=== PATIENT | male | born 1970 | race Caucasian/White ===

== ENCOUNTER 2016-11-08 14:00 | Emergency (ER) | payer BC ==
[~2016-11-08] VITALS: Ht 182.9 cm; Wt 114.3 kg
[~2016-11-08 14:00] MED LIST: PRED50TA PO
[2016-11-08 14:07] VITALS: Ht 182.9 cm; Wt 114.3 kg
--- NOTE | 2016-11-08 15:04 | DIAGNOSTIC IMAGING REPORT ---
RIGHT SHOULDER MIN 2 VIEWS ROUTINE CLINICAL HISTORY: Right shoulder pain following fall. COMPARISON: None FINDINGS: Alignment of the right glenohumeral joint is anatomic. There is a surgical anchor within the right humeral head. No acute fracture is identified. Irregularity of the distal right clavicle is likely degenerative or postsurgical. There is mild glenohumeral joint arthrosis and moderate acromioclavicular joint arthrosis. There may be slight elevation of the distal right clavicle. IMPRESSION: 1. No acute fracture. Anatomic alignment right glenohumeral joint. 2. Slight elevation of the distal right clavicle with respect to the acromion. This may be postsurgical although a mild age indeterminate AC joint separation could have this appearance. Electronically signed by: Tenzin Lehman M.D. 11/08/2016 3:03 PM Dictated Date/Time: 11/08/2016 3:00 PM
[2016-11-08] MEDS ORDERED: GLUCTAB7 PO (15:07)
[2016-11-08] MEDS ORDERED: MULT-506 PO (15:07)
[2016-11-08] MEDS ORDERED: ACET-1138 PO (15:07)
[2016-11-08 16:02] VITALS: BP 120/79; PULSE 78; TEMP 36.7; O2SAT 99
--- NOTE | 2016-11-08 20:40 | EMERGENCY ROOM VISIT NOTE ---
ED Visit Note First contact with patient: 14:17 Chief Complaint: Right shoulder pain. History of Present Illness: Mr. Green is a 46-year-old white male who ambulates into the ED accompanied by female friend complaining of right shoulder pain over the acromioclavicular joint. Historically patient reports he's had previous rotator cuff surgery approximately 2 years ago without complication. Patient reports that he was trail running when he fell onto his right shoulder. This occurred approximately 5 hours before he arrived in the emergency department. Since the fall he's been having constant pain over the right acromioclavicular joint. He describes it as a achy sensation at rest that becomes sharp predominantly with a combination of shoulder extension and internal rotation. He has not taken any medications for pain prior to arrival at the hospital. He rates his discomfort 2/10. He denies any associated symptoms including signs of head injury, striking his head at the time of the fall, neck pain, chest pain, shortness of breath, arm weakness/numbness/ tingling. Review of Systems: As noted above in history of present illness. Past Medical History: As previously noted, status post and multiple orthopedic injuries. Current Medications: Extra strength Tylenol, glucosamine, multivitamins and Zyrtec. Allergies to Medications: NSAIDs. Social History: Patient is currently employed; he feels safe in his home environment; he denies tobacco use and admits to social alcohol use. Physical Examination: Vital Signs: Date Time Temp Pulse Resp B/P (MAP) Pulse Ox O2 Delivery O2 Flow Rate FiO2 11/08/16 16:02 36.7 78 18 120/79 99 11/08/16 16:00 78 18 120/79 99 Room Air 11/08/16 14:07 36.7 81 18 123/83 97 Room Air GENERAL: 46-year-old male in mild distress due to pain, nontoxic-appearing, afebrile and hemodynamically stable. NEUROLOGICAL: Awake, alert and oriented to person, place and time. Answering questions appropriately and following commands. Normal gait. Good hand eye coordination. No focal motor or sensory deficits. SKIN: Warm, dry and pink. No soft tissue trauma noted. HEENT: Atraumatic and normocephalic. RIGHT UPPER EXTREMITY: No gross bony deformity. Mild to moderate tenderness over the acromioclavicular joint with elevation of the clavicle; patient reports this occurred today and is not from his previous surgeries. No tenderness over the humerus, clavicle, elbow, forearm or wrist. Decreased range of motion in abduction, extension and internal rotation. With the elbow stabilized he has full range of motion in flexion and extension of the elbow, pronation and supination of forearm and flexion, extension and radial and ulnar deviation of the wrist. All distal neurovascular statuses are intact and equal bilaterally. ED Course: Patient is assessed as noted above Patient's medication list was reviewed. Patient was offered pain medication and refused. Right Shoulder X-Rays: Were read by myself and the radiologist shows postsurgical changes but no fractures. There is elevation of the clavicle at the acromioclavicular joint consistent with a separation. Patient was offered a shoulder mobilizer reports he's had one from his previous surgeries. Patient was educated about today's findings and instructed on his treatment plan ; he verbalized understanding and agreement with this plan and Clinical Impression: Right acromioclavicular joint separation. Status post fall. Disposition: Patient discharged home in stable condition accompanied by his ; prior to departure he was reassessed and subjectively reported he was feeling the same. Plan: Comfort measures were discussed with the patient including rest, mobilizer use, ice and acetaminophen. Patient was encouraged to follow-up with his orthopedic surgeon for recheck. Patient is encouraged return the ED for worsening/uncontrolled pain, uncontrolled swelling, arm/hand weakness/numbness/tingling or any new/ concerning symptoms.
[2016-11-08] MEDS ORDERED: CETI10TA84 PO (20:49)
== END 2016-11-08 16:03 | disposition home or self-care (01) ==
LOC: C.EDB 14:03 → C.EDD 16:03
DX: S43.101A Unspecified dislocation of right acromioclavicular joint, initial encounter (principal); W19.XXXA Unspecified fall, initial encounter; Y93.02 Activity, running

== ENCOUNTER 2017-03-22 23:06 | Emergency (ER) | payer BC ==
[~2017-03-22] VITALS: Ht 182.9 cm; Wt 118.2 kg
[~2017-03-22 23:06] MED LIST changes: +ACET-1138 PO; +CETI10TA84 PO; +GLUCTAB7 PO; +MULT-506 PO; -PRED50TA PO
[2017-03-22 23:09] VITALS: TEMP 36.5; Ht 182.9 cm; Wt 118.2 kg
[2017-03-22] MEDS ORDERED: HYDROmorphone INJ 2 MG/ML SYR/VIAL IV STA (23:22)
--- NOTE | 2017-03-22 23:26 | EMERGENCY ROOM VISIT NOTE ---
History Report prepared by Salvador: Dunia Mason Under the Supervision of: Dr. Cece Leone D.O. First contact with patient: 23:12 Chief Complaint: LEG PAIN,LEG INJURY Stated Complaint: SEVERE PAIN R LEG History of Present Illness The patient is a 46 year old male who presents to the Emergency Room with complaints of severe right leg pain beginning a couple hours ago. The patient notes he went for a 4 mile run yesterday and felt fine after. He states he woke up this morning with his right knee swelling and decreased range of motion. He said his severe pain then began suddenly a couple hours ago. He notes some calf tightness and soreness. His pain radiates to his hamstring. He denies any groin pain, abdominal pain, sore throat, cough, fever, or weight loss. The patient has a history of PCL and MCL repair by Dr. Capellan. The patient is allergic to NSAIDs and states his lips get swollen when he takes it. The patient denies any history of blood clots. He has no other medical history besides hospitalization for orthopedic surgeries. Source of History: patient Onset: a couple hours ago Position: leg (right) Symptom Intensity: severe Quality: other (radiates to hamstring) Associated Symptoms: No fevers, No sorethroat, No cough, No abdominal pain Note: Pt notes right knee swelling and decreased range of motion. Review of Systems See HPI for pertinent positives & negatives. A total of 10 systems reviewed and were otherwise negative. Past Medical & Surgical Surgical Problems: (1) S/P MCL repair Family History No pertinent family history. Social History Smoking Status: Never Smoker Alcohol Use: occasionally Marital Status: Housing Status: lives with family Occupation Status: employed Current/Historical Medications Scheduled Cetirizine (Zyrtec), 10 MG PO DAILY Pqasmtgybdf-Qsrefqliedv-Fzq C- (Glucosamine Chondroitin), 1 TAB PO DAILY Multivitamin (Multivitamin), 1 TAB PO DAILY Scheduled PRN Oxycodone/Acetaminophen 5MG/325MG (Percocet 5MG/325MG), 2 TABLETS PO Q4H PRN for Pain Allergies Coded Allergies: NSAIDs (Verified Allergy, Intermediate, Facial swelling, 03/22/17) Ibuprofen (Verified Allergy, Unknown, facial swelling, 03/22/17) Physical Exam Vital Signs Date Time Temp Pulse Resp B/P (MAP) Pulse Ox O2 Delivery O2 Flow Rate FiO2 11/13/17 04:02 54 20 137/86 94 03/23/17 03:25 55 20 143/88 94 Room Air 03/23/17 02:05 56 20 150/93 93 Room Air 03/23/17 00:13 58 20 128/80 94 Room Air 03/22/17 23:09 36.5 57 18 173/102 98 Room Air Physical Exam HEENT: Head - normocephalic and atraumatic Pupils are equal, round, and reactive to light. Extraocular eye muscles are intact, and sclera are anicteric. Nose - moist nasal mucosa without discharge. Mouth - moist buccal mucosa. Oropharynx is nonerythematous and there is no tonsillar exudate or edema noted. Neck: Supple; no JVD, nuchal rigidity, cervical lymphadenopathy, or auscultated bruits. Heart: Regular rate and rhythm. There is a normal S1 and S2 with no murmurs, clicks, or gallops appreciated. Lungs: Clear to auscultation bilaterally with no wheezes, rales, or rhonchi. Abdomen: Soft, completely nontender, nondistended, with good bowel sounds. There are no palpable pulsatile masses or hepatosplenomegaly. There is no guarding, rigidity, or rebound noted. Extremities: Edema from right mid-thigh to mid-calf, pain with palpation of right popliteal fossa and posterior thigh, limited range of motion of right knee with flexion. Skin: warm and dry with good turgor and no rashes. Medical Decision & Procedures ER Provider Diagnostic Interpretation: Radiology results as stated below per my review and the radiologist's interpretation: US VENOUS RIGHT LOWER EXTREMITY: No evidence of deep venous thrombosis. Radiologist Arminda Rich Right knee X-ray: small joint effusion, mild degenerative changes, no obvious fracture. Laboratory Results 03/22/17 23:25 Red Blood Count 4.92, Mean Corpuscular Volume 86.0, Mean Corpuscular Hemoglobin 31.9, Mean Corpuscular Hemoglobin Concent 37.1, Mean Platelet Volume 9.7, Neutrophils (%) (Auto) 47.0, Lymphocytes (%) (Auto) 44.3, Monocytes (%) (Auto) 6.2, Eosinophils (%) (Auto) 2.4, Basophils (%) (Auto) 0.0, Neutrophils # (Auto) 3.31, Lymphocytes # (Auto) 3.12, Monocytes # (Auto) 0.44, Eosinophils # (Auto) 0.17, Basophils # (Auto) 0.00 Test 03/22/17 23:25 White Blood Count 7.05 K/uL (4.8-10.8) Red Blood Count 4.92 M/uL (4.7-6.1) Hemoglobin 15.7 g/dL (14.0-18.0) Hematocrit 42.3 % (42-52) Mean Corpuscular Volume 86.0 fL (80-100) Mean Corpuscular Hemoglobin 31.9 pg (25-34) Mean Corpuscular Hemoglobin Concent 37.1 g/dl (32-36) Platelet Count 225 K/uL (130-400) Mean Platelet Volume 9.7 fL (7.4-10.4) Neutrophils (%) (Auto) 47.0 % Lymphocytes (%) (Auto) 44.3 % Monocytes (%) (Auto) 6.2 % Eosinophils (%) (Auto) 2.4 % Basophils (%) (Auto) 0.0 % Neutrophils # (Auto) 3.31 K/uL (1.4-6.5) Lymphocytes # (Auto) 3.12 K/uL (1.2-3.4) Monocytes # (Auto) 0.44 K/uL (0.11-0.59) Eosinophils # (Auto) 0.17 K/uL (0-0.5) Basophils # (Auto) 0.00 K/uL (0-0.2) RDW Standard Deviation 40.6 fL (36.4-46.3) RDW Coefficient of Variation 12.9 % (11.5-14.5) Immature Granulocyte % (Auto) 0.1 % Immature Granulocyte # (Auto) 0.01 K/uL (0.00-0.02) Erythrocyte Sedimentation Rate 6 mm/hr (0-14) C-Reactive Protein 0.31 mg/dl (0-0.29) Lyme Disease IgG Antibody NEG (NEG) Lyme Disease IgM Antibody NEG (NEG) Laboratory results per my review. Medications Administered Medications (Trade) Dose Ordered Sig/Tevin Route Start Time Stop Time Status Last Admin Dose Admin Hydromorphone HCl (Dilaudid Inj) 2 mg NOW STAT IV 03/22/17 23:22 03/22/17 23:24 DC 03/22/17 23:31 2 MG Hydromorphone HCl (Dilaudid Inj) 2 mg NOW STAT IV 03/23/17 00:03 03/23/17 00:04 DC 03/23/17 00:11 2 MG Oxycodone/ Acetaminophen (Percocet 5-325mg Tab) 2 tab NOW ONCE PO 03/23/17 03:15 03/23/17 03:16 DC 03/23/17 03:25 2 TAB Procedure Dilaudid IV, Oxycodone/ Acetaminophen PO. ED Course 2315: Past medical records reviewed. The patient was evaluated in room A11B. A complete history and physical exam was performed. 2322: Dilaudid Inj 2 mg IV. 0003: Dilaudid Inj 2 mg IV. 0106: The patient was sleeping. When woken up, he states his pain is much improved. The patient went for ultrasound of the right lower extremity which was unremarkable. 0253: I updated the patient on his test results. The patient states his pain is coming back. On re-exam, the swelling in his right leg has decreased. He will go for X-ray. 0315: Oxycodone/ Acetaminophen 2 tab PO. 0340: The patient is comfortable and had relief with Percocet. I updated him on his X-ray results and will send him home with Percocet. I reviewed the PDMP and the no issues were identified. I reviewed the hazards of opioid abuse and addiction with the patient. He will follow up wit Dr. Varma. 0358: Upon reevaluation, the patient is resting comfortably. I discussed findings and results with him. He verbalized agreement of the treatment plan. The patient was discharged home. Medical Decision The patient is a 46 year old male who presents to the Emergency Room with complaints of severe right leg pain beginning a couple hours ago. Differential diagnosis includes: DVT, arteriole clot, bakers cyst, septic joint, sciatica. Lab results show: no leukocytosis, ESR of 6, c-reactive protein of 0.3. Lyme testing was negative. The patient doesn't remember any specific injury to the right leg or knee. He had significant discomfort of the knee that seemed to extend into the calf and hamstring area. Ultrasound of the right lower extremity showed no evidence of DVT or browne cyst. The patient did get some relief of his pain with analgesia. I've asked him to rest and avoid any strenuous activity until follow-up in orthopedics. He plans to call Dr. Varma this morning for recheck. He was given a prescription for Percocet to use over the next couple of days. [place] Drug Monitoring Program Search Results: patient reviewed within database, no issues identified Medication Reconcilliation Current Medication List: was personally reviewed by me Blood Pressure Screening Patient's blood pressure: Elevated blood pressure Blood pressure disposition: Elevated BP felt to be situational Impression Primary Impression: Leg pain, right Scribe Attestation The scribe's documentation has been prepared under my direction and personally reviewed by me in its entirety. I confirm that the note above accurately reflects all work, treatment, procedures, and medical decision making performed by me. Departure Information Dispostion Home / Self-Care Prescriptions Oxycodone/Acetaminophen 5MG/325MG (PERCOCET 5MG/325MG) Tab 2 TABLETS PO Q4H Y for Pain, #20 TAB Prov: Cece Leone D.O. 03/23/17 Referrals Eugene Do M.D. ([facility]) (PCP) Forms HOME CARE DOCUMENTATION FORM, IMPORTANT VISIT INFORMATION Patient Instructions My [facility] [place] [employer] Additional Instructions Rest with the right leg elevated. Percocet - 2 tabs. every 4 hours for pain Follow up today with Dr. Varma. Return to the ER if you develop any wosening pain or fever
[2017-03-22 23:45] LABS: COMPLETE YES; EOS % 2.4 %; HEMATOCRIT 42.3 % (42-52); IG% 0.1 %; LYMPH % 44.3 %; LYMPH ABS # 3.12 K/uL (1.2-3.4); MEAN CORPUSCULAR HEMOGLOBIN 31.9 pg (25-34); MEAN CORPUSCULAR HGB CONC 37.1 g/dl (32-36); MEAN PLATELET VOLUME 9.7 fL (7.4-10.4); MONO % 6.2 %; PLATELET COUNT 225 K/uL (130-400); RED BLOOD COUNT 4.92 M/uL (4.7-6.1); WHITE BLOOD COUNT 7.05 K/uL (4.8-10.8)
[2017-03-23] MEDS ORDERED: HYDROmorphone INJ 2 MG/ML SYR/VIAL IV STA (00:03)
[2017-03-23] MEDS ORDERED: OXYCODONE/ACETAMINOPHEN 5-325 TAB PO ONE (03:15)
[2017-03-23] MEDS ORDERED: OXYC-57 PO (03:50)
[2017-03-23 04:02] VITALS: BP 137/86; PULSE 54; O2SAT 94
[2017-03-23 04:29] LABS: LYME DISEASE AB IGG NEG (NEG); LYME DISEASE AB IGM NEG (NEG)
--- NOTE | 2017-03-23 07:13 | DIAGNOSTIC IMAGING REPORT ---
RIGHT KNEE 2 VIEWS CLINICAL HISTORY: Right knee pain COMPARISON: None. DISCUSSION: There are osteoarthritic changes present. There are are dorsal patellar spurs. There are no acute fractures. No destructive lesions are visualized. IMPRESSION: Osteoarthritic change. No acute fractures. Electronically signed by: Anam Medel M.D. 03/23/2017 7:12 AM Dictated Date/Time: 03/23/2017 7:11 AM
--- NOTE | 2017-03-23 07:22 | DIAGNOSTIC IMAGING REPORT ---
R VENOUS DOPP LOWER EXT UNILAT CLINICAL HISTORY: 46 years-old Male presenting with severe right leg pain, clinical concern for DVT eval for DVT. TECHNIQUE: Real-time grayscale and color and spectral Doppler ultrasound imaging of the veins of the right lower extremity was performed. Compression and augmentation were also utilized. COMPARISON: None. FINDINGS: Right: Common femoral vein: Patent. Femoral vein: Patent. Greater saphenous vein: Patent. Popliteal vein: Patent. Calf veins: Patent. Other: None. IMPRESSION: No evidence of deep venous thrombosis. Electronically signed by: Fabian Clements M.D. 03/23/2017 7:21 AM Dictated Date/Time: 03/23/2017 7:20 AM
== END 2017-03-23 04:03 | disposition home or self-care (01) ==
LOC: C.EDB 23:07 → C.EDA 03-23 04:03
DX: M79.604 Pain in right leg (principal); Z79.899 Other long term (current) drug therapy

== ENCOUNTER 2024-09-06 05:17 | Observation (INO) ==
--- NOTE | 2024-06-30 11:02 | PAT Medication Instructions ---
Medication Instructions Date of Service June 30, 2024 Home Medications cetirizine 10 mg tablet (Zyrtec) 10 mg PO QAM multivitamin 1 tab PO QAM DO NOT take the morning of surgery cetirizine 10 mg tablet (Zyrtec) 10 mg PO QAM multivitamin 1 tab PO QAM MORNING OF SURGERY: NOTHING TO EAT OR DRINK AFTER MIDNIGHT Other Notes If you have any questions please call us at [phone] or [phone] or [phone] or [phone]
--- NOTE | 2024-07-04 08:22 | Anesthesiology Consultation ---
Date of Service July 04, 2024 Assessment & Plan (1) Encounter for pre-operative examination: - Infectious disease screening: Per assessment on 07/04/24- No known recent infectious disease contacts or current infectious disease symptoms. - Outpatient joint assessment: Pt currently scheduled for inpatient pathway. If surgeon requests review for outpatient joint pathway, patient is an acceptable candidate for outpatient joint program from anesthesia standpoint pending surgeon's office assessment that patient is motivated, has good support and completes Same Day Joint Program preop requirements. - Cardiology visit (06/20/24): "Stable with no angina or nitroglycerin use.. Functional capacity >4 METS.. EKG in office with no acute ischemic changes.. In terms of preop risk assessment, per [facility] Criteria, patient would be placed at a low risk (less than 0.9%)for any adverse perioperative cardiovascular events associated with right knee replacement surgery. Patient is on a good medication regimen and no other cardiac testing or interventions would further lower that risk.." > Cardio planning for patient to start statin for cholesterol management- patient not starting until after upcoming surgery. - PCP visit (07/01/24): "Leigh Daigle, presents for a preoperative evaluation for a right knee replacement surgery scheduled for August [address] [facility]. The patient will general anesthesia will be used and has a pre-appointment with the anesthesiologist scheduled for the following Thursday. He has had anesthesia bef ore with no known complications such as high fevers, prolonged nausea, vomiting, or difficulty waking up. The patient is able to walk one city block and one flight of stairs without experiencing shortness of breath. The surgeon performing the operation is Dr. Fabian Blanchard from [facility]... No contraindication for surgery.. No precautions required" Chart Review Chart Review: Acceptable Risk for Surgery and Patient seen in Pre Admission Testing Teaching & Discussion Pre-Anesthesia Teaching/Discussion Notes: Instructed NPO after midnight before surgery,except medications with 15 cc of water. Medication instructions provided according to the PAT guidelines. History Surgery Operation Date: 08/02/24 07:00 Proposed Procedures p Right Total Knee Arthroplasty - Fabian Blanchard MD Height/Weight Height: 6 ft 1 in Weight: 125.8 kg Allergies Allergy/AdvReac Type Severity Reaction Status Date / Time ibuprofen Allergy Intermediate facial Verified 06/30/24 09:44 swelling NSAIDS (Non-Steroidal Allergy Intermediate Facial Verified 06/30/24 09:44 Anti-Inflamma swelling Medications Home Medications Medication Instructions Recorded Confirmed Last Taken cetirizine 10 mg tablet (Zyrtec) 10 mg PO QAM ##0 10/03/08 06/30/24 12/08/22 multivitamin 1 tab PO QAM 06/30/24 06/30/24 Unknown Past Medical History Medical History Ascending aorta enlargement Echo 04/2024: Borderline enlarged ascending aorta, 3.9cm Mild aortic valve sclerosis Echo 04/2024: Mild AV sclerosis Follows with Dr. Miller/Lucero cardio Osteoarthritis Exercise / Class Metabolic Activity II 4-5 Yardwork/Stairs/Walk up hill (one FS: no CP, no SOB) Past Family History Family History Other No family history of adverse response to anesthesia Past Surgical History Surgical History History of arthroscopy of right knee multiple History of colonoscopy History of elbow surgery right elbow "bone chips" History of left hip replacement History of repair of left rotator cuff History of repair of right rotator cuff History of wisdom tooth extraction Past Anesthesia History No Hx of Anesthesia Complications and No Family Hx of Anesthesia Complications History of PONV No Hx of PONV and No Hx of Motion Sickness Social History Smoking Status: Never smoker Do You Dip or Chew Tobacco: No Hx Alcohol Use: Yes ("1 or 2 drinks a week") alcohol intake frequency: a few times a month Hx Substance Use: No substance use type: does not use Review of Systems Patient denies chest pain, shortness of breath, dyspnea on exertion, fever, chills, cough, wheezing, palpitations. Physical Exam Vital Signs BP 129/79 P 63 TEMP 97.9 SP02 96%RA RESP 16 Physical Full cervical extension range of motion. Full TMJ range of motion. TMD 3 finger breaths Mallampati Score III Dentition: intact, + crowns Lungs: clear throughout to auscultation Cardiac: regular rate and rhythm, no murmurs noted Spine: normal Carotid arteries: negative bruit Extremities: no LE edema Lab Results Anesthesia Preop Results Results Anesthesia Widget: WBC 7.95 K/ul (4.8-10.8) 07/04/24 Hgb 16.0 g/dl (14.0-18.0) 07/04/24 Hct 44.9 % (42.0-52.0) 07/04/24 Plt 259 K/uL (130-400) 07/04/24 PT 10.6 Seconds (9.0-12.0) 07/04/24 PTT 27 Seconds (21-31) 07/04/24 INR 1.0 (0.9-1.1) 07/04/24 Blood Type O Positive 07/04/24 Antibody Screen NEGATIVE 07/04/24 Testing Laboratory Results 06/27/24 SODIUM 143 POTASSIUM 4.1 CHLORIDE 106 CO2 28 BUN 20 CREATININE 1.2 GLUCOSE 104 Electrocardiogram Date: 06/20/24 Findings: + NSR @ (66) Chest X-Ray Date: 07/04/24 FINDINGS: Heart size and pulmonary vasculature are normal. No effusion or consolidation. IMPRESSION: No acute findings. Echocardiogram Date: 04/11/24 LVEF 55-59%. Mildly increased cLVH. Grade I DD. Mild AV sclerosis. Borderline ascending aorta, 3.9cm. No significant change compared to 03/02/2023 study per report.
[~2024-09-06 05:17] MED LIST changes: -ACET-1138 PO; +ALLERGY Noted to ORDERED Medication SCH; -CETI10TA84 PO; -GLUCTAB7 PO; +LR 500ML BOLUS, THEN 15ML/HR IV SCH; -MULT-506 PO
[2024-09-06] MEDS: oxyCODONE HCL 10 MG TABCR (OxyCONTIN) PO SCH (05:50)
[2024-09-06] MEDS: LR 60ML/HR IV SCH (05:50)
[2024-09-06] MEDS: GABAPENTIN 900 MG DOSE PO SCH (05:51)
[2024-09-06] MEDS: FAMOTIDINE 20 MG TAB PO SCH (05:51)
[2024-09-06] MEDS: METOCLOPRAMIDE HCL 10 MG TABLET PO SCH (05:51)
[2024-09-06] MEDS: traMADol HCL 50 MG TABLET PO SCH (05:51)
[2024-09-06] MEDS: ACETAMINOPHEN 500 MG TAB PO SCH ×2 (05:51→15:07)
[2024-09-06] MEDS: LR 500ML BOLUS, THEN 15ML/HR IV SCH (06:03)
[2024-09-06] MEDS: dexAMETHasone**PF** 10 MG/ML VIAL IV SCH (06:03)
[2024-09-06] MEDS ORDERED: KETOROLAC 30 MG/ML VIAL ONE (06:22)
[2024-09-06] MEDS ORDERED: PROPOFOL IV EMULSION 10 MG/ML 100 ML VIAL IV ONE (06:22)
[2024-09-06] MEDS ORDERED: GLYCOPYRROLATE 0.2 MG/ML VIAL ONE (06:22)
[2024-09-06] MEDS ORDERED: LIDOCAINE 2% 2 ML VIAL/AMP(20MG/ML) INFIL ONE (06:22)
[2024-09-06] MEDS ORDERED: ONDANSETRON INJ 2 MG/ML 2 ML VIAL ONE (06:22)
[2024-09-06] MEDS ORDERED: MIDAZOLAM HCL 1 MG/ML 2ML VIAL ONE (06:28)
[2024-09-06] MEDS ORDERED: KETAMINE HCL 10MG/ML SYR ONE (06:28)
[2024-09-06] MEDS ORDERED: ROPIVACAINE 0.5% 5 MG/ML 30 ML VIAL ONE (06:32)
[2024-09-06] MEDS ORDERED: BUPIVACAINE 0.5 % 5 MG/1 ML PF 10ML VIAL ONE (06:32)
[2024-09-06] MEDS ORDERED: ATROPINE SULFATE 0.1 MG/ML 10ML SYR IV PRN (06:37)
[2024-09-06] MEDS ORDERED: fentaNYL citrate PF 100 MCG/2 ML VIAL IV PRN (06:37)
[2024-09-06] MEDS ORDERED: ePHEDrine sulfate 50 MG/ML AMP IV PRN (06:37)
[2024-09-06] MEDS ORDERED: ONDANSETRON INJ 2 MG/ML 2 ML VIAL IV PRN ×2 (06:37→13:10)
[2024-09-06] MEDS: TRANEXAMIC ACID 1,000 MG **IV Pre-op IV SCH (06:47)
--- NOTE | 2024-09-06 06:47 | History & Physical Bridge Note ---
Date of Service September 06, 2024 History & Physical Bridge Note I have examined the patient, reviewed the History & Physical and in the interval since the performance of the History & Physical I have noted the following changes of clinical significance: no changes noted
[2024-09-06] MEDS ORDERED: ePHEDrine sulfate 50 MG/5 ML SYR ONE (07:25)
[2024-09-06] MEDS ORDERED: PHENYLEPHRINE 100MCG/ML 5ML SYR ONE (07:25)
[2024-09-06] MEDS ORDERED: DexMEDEtomidine HCL IV 100 MCG/ML VIAL IV ONE (09:05)
[2024-09-06] MEDS ORDERED: PROPOFOL IV EMULSION 10 MG/ML 20 ML VIAL IV ONE ×2 (09:25→09:26)
[2024-09-06] MEDS: ROPIVACAINE 0.5% HCL/PF 246 MG, EPINEPHrine 30MG/30ML (OR USE) 0.5 MG in SODIUM CHLORID... INFIL SCH (09:30)
[2024-09-06] MEDS: VANCOMYCIN HCL 1000MG/20ML VIAL ONE (09:31)
--- NOTE | 2024-09-06 10:46 | Operative Report ---
Post Operative Report Pre & Post Diagnosis Operation Date: 09/06/24 07:00 Pre-Op Diagnosis: Right Knee Osteoarthritis Post-Op Diagnosis: Right Knee Osteoarthritis I identified the patient and participated in the time-out.: Yes Procedure Operation Date: 09/06/24 07:00 Actual Procedures p Right Total Knee Arthroplasty(Right) - Fabian Blanchard MD Surgeon Fabian Blanchard MD [employer] Sole Griffin PA-C; no fellow or resident available Estimated Blood Loss 20 Findings Consistent with Post-Op Diagnosis Specimens Bone and soft tissue Anesthesia Type MAC Spinal Regional Description of Procedure Patient was taken to the operating room and placed under IV sedation with spinal anesthesia. Time out was performed. He was given 3 g of IV Ancef for surgical prophylaxis. He was given 1 g of IV TXA preoperatively for bleeding prophylaxis. Patient was prepped and draped in routine sterile fashion. I was present during the entire case. Please see Dr. Blanchard's operative report for further details regarding today's procedure. Patient was awakened and transferred to the recovery room in stable condition. I attest to the content of the Intraoperative Record and any orders documented therein. Any exceptions are noted below.
--- NOTE | 2024-09-06 10:52 | Operative Report ---
Post Operative Report Pre & Post Diagnosis Operation Date: 09/06/24 07:00 Pre-Op Diagnosis: Right Knee Osteoarthritis Post-Op Diagnosis: Right Knee Osteoarthritis I identified the patient and participated in the time-out.: Yes Procedure Operation Date: 09/06/24 07:00 Actual Procedures p Right Total Knee Arthroplasty With unresurfaced patella(Right) - Fabian Blanchard MD Surgeon Fabian Blanchard MD Software Test Engineer Sole Griffin. No resident or fellow available Estimated Blood Loss 20 Findings Consistent with Post-Op Diagnosis Specimens Resected bone and soft tissue from the right knee Drains None Anesthesia Type MAC Spinal Regional Complications none Disposition Accompanied Patient To Recovery: No Disposition: Recovery Room Indications Patient is 54 years old. Right knee arthritis medial compartment. Refractory to nonsurgical treatment. Treatment options risks and benefits have been discussed and he has elected to proceed with knee replacement. Patient is large bodied with BMI of 35. Also very active. There was initial concern regarding implant sizing. To ensure appropriate sizing a CT scan of the knee has been done and Trumatch sizing through [employer] has been performed determining that he would be a size 9 on the tibia and a 10 on the femur which are standard sizes. 10 is the biggest femur offered. Description of Procedure Informed consent. Patient identified. He identified the procedure site as the right knee. I marked my initials. A preoperative surgicalTime out is performed. A preop dose of IV antibiotics was given. TXA given. Taken to the OR positioned supine on the operating room table. Anesthetic administered. Exam under anesthesia revealed range of motion 0/7/115. A fixed varus deformity. DVT prophylaxis intraoperatively with mechanical device. Postoperatively mobility mechanical devices and Eliquis starting the morning after surgery. Limb exsanguinated with the Esmarch. Tourniquet inflated to 250 mmHg and later it up to 300 mmHg. A midline longitudinal incision was made followed by medial parapatellar arthrotomy. There was extensive scarring in the knee secondary to previous surgery. The retropatellar fat pad was resected. The soft tissue on the anterior aspect of the distal femur was excised. An extensile medial release was performed. The patella was easily everted and the knee was flexed. The patella measured 27 mm in thickness. There was a small marginal osteophyte inferiorly. The patella had diffuse softening of the cartilage consistent with grade 1 chondrosis but there was no significant cartilage defect beyond that. Cartilage thickness was measured to be 4 to 5 mm over the median ridge. Peripatellar synovium was excised. I elected to preserve the patella. There was significant eburnation and loss of cartilage in the medial compartment 2 cm wide x 5 cm long on the femur and 1 x 3 on the tibia medial compartment. The medial meniscus was largely absent and the ACL was high-grade partial tear versus complete tear PCL intact. Lateral compartment looked normal. There were marginal osteophytes around the knee particularly medial but also lateral and these were excised. Osteophytes under the collateral ligaments were excised. The tibia was subluxated and a airplane pilot supervisor hole was drilled in between and in front of the tibial spines. Intramedullary alignment yuko was inserted followed by the 3 degree posterior slope cutting block. This was aligned to the tibial tubercle and pinned into place to take 10 mm off of the lateral side corresponding to 2 mm on the medial side. The leg was then placed into full extension and the extramedullary alignment yuko confirmed the alignment intersecting the second ray bisecting the ankle joint and having slight posterior slope. This tibial cut was then made and sized to a 9 or 10. Marginal osteophytes removed and releasing around the posterior medial corner performed. Scientific Investigator holes drilled into the distal femur followed by the insertion of the distal femoral cutting guide. 6 degrees right knee valgus 11 mm thick cut. The guide was pinned in the place and this cut was made. The extension gap was a symmetric 5 mm. The epicondylar axis was marked out. The sizing guide was applied and sized to a 10. 3 degrees external rotation right. This guide was pinned into place and then the size 10 cutting block anterior down was hung from these pins. The block was affixed with a threaded headed pins and the prior pins were removed. The collateral ligaments were protected. The flexion gap was rectangular. The anterior posterior and chamfer cuts were then made. The box cutting guide was applied and lateralized. This was pinned into place and the box cut was made. The trial component was applied and the lug holes were drilled. Prior to cutting the box the flexion and extension gaps were assessed. I was able to insert a 6 mm spacer both in flexion and extension. It was stable in both positions. The knee was fully extended and in neutral alignment. The trialing was performed with a 6 mm polyethylene insert which allowed full extension there is no laxity at 0 trace LCL laxity at 20 degrees knee flexion and no laxity at 90. The trial components were removed. The tibial canal was plugged. Ortho joint mix was injected into the back of the knee. Eburnated bone on the tibia and femur was drilled with a pin ready mix truck driver. Irrigation was performed and the bony surfaces were meticulously prepared and dried. 2 bags of Simplex P cement were mixed with no antibiotics. Smears were placed on the posterior condyles and within the lug holes. When in a doughy state the femur was cemented in place followed by the tibia. The knee was held in full extension until the cement hardened and the tourniquet was let down after 150 minutes of inflation. Some minor bleeding was controlled in the suprapatellar pouch with electrocautery. When the cement was hardening copious irrigation was performed and the remainder of the Ortho joint mix was injected.Trialing was again performed and the 6 mm thick insert gave the after mentioned laxity profi le and the final polyethylene was inserted after inspecting the back of the knee for cement and bleeding and addressing as encountered. No significant cement globules or bleeding was noted. Initially when trialing the patella tracked lateral. After the tourniquet was let down and this largely improved. I did do a partial lateral release preserving the superior lateral geniculate vessels. Patella tracked fine with no Lenora technique and with [address] also tracked fine. The knee was irrigated. The final polyethylene was inserted. The knee was fully straight had trace LCL laxity at 20 degrees knee flexion was otherwise stable at 0 and 90 degrees. The extensor mechanism was closed above the equator patella with interrupted #2 FiberWire and below with running and interrupted #1 Vicryl. [place] assisted flexion with extensor mechanism close was estimated to be 120 degrees the extension was 0.The skin was then closed in layers with 0 and 2-0 Vicryl followed by kristal on the skin. The leg was cleaned with wet and dry sponges and the soft sterile dressing was applied Xeroform 4 x 4's ABD soft wrap [place] wrap full-length [place] and a knee immobilizer. Patient was awakened from anesthesia difficulty and taken to the recovery room in stable condition. There were no complications and counts were correct. Blood loss is estimated to be 20 cc. There was no significant bleeding at the time of closure. I half gram of vancomycin was applied deep and half gram superficial to the extensor mechanism. The resected bone and soft tissue were sent for specimen. Components inserted where the J&J attune knee a size right posterior stabilized #10 femur with a #10 RP revision tray and a size 10 x 6 mm RP insert. You may rehabilitate according to standard total knee protocol. The tibia was prepared with the drill reamer and keel punch for the revision tibial implant system. This was done in order to improve the longevity of the implant by reducing the incidence of loosening associated with patient who is very active and has a higher BMI in a young age. I attest to the content of the Intraoperative Record and any orders documented therein. Any exceptions are noted below.
--- NOTE | 2024-09-06 11:08 | XRay Report ---
XR knee RT 1 or 2V routine HISTORY: 54 years-old Male Surgical Post Op right knee arthroplasty COMPARISON: July 11, 2024 TECHNIQUE: 2 views of the right knee FINDINGS: Total joint arthroplasty with patellar resurfacing. Anterior midline skin kristal with expected posto perative soft tissue swelling and deep tissue air. IMPRESSION: Satisfactory alignment of the right knee total joint arthroplasty. ACT 112: Negative or not required by law. The above report was generated using voice recognition software. It may contain grammatical, syntax o r spelling errors. Electronically signed by: Betito Walters M.D. 09/06/2024 11:06 AM
--- NOTE | 2024-09-06 11:37 | Anesthesiology Progress Note ---
Date of Service September 06, 2024 Anesthesia Post Procedure Vital Signs Vital Signs: Temp Pulse Resp BP Pulse Ox O2 Del Method O2 Flow Rate 09/06/24 11:30 932 H 18 105/71 95 Nasal Cannula 2 09/06/24 11:15 84 18 104/78 94 Nasal Cannula 2 09/06/24 11:05 97.9 F 86 21 117/79 96 Nasal Cannula 2 09/06/24 10:55 85 15 113/73 98 Nasal Cannula 2 09/06/24 10:45 81 18 107/75 98 Oxymask 6 09/06/24 10:38 97.3 F L 87 18 118/78 97 Oxymask 8 09/06/24 05:35 97.9 F 66 20 149/95 H 96 Room Air Pain Intensity Right Knee: Pain Intensity: 5 Transfer of Care Handoff Completed per policy Notes Mental Status: alert / awake / arousable and participated in evaluation Patient Amnestic to Procedure: Yes Nausea / Vomiting: adequately controlled Pain: adequately controlled Airway Patency, RR, SpO2: stable & adequate BP & HR: stable & adequate Hydration State: stable & adequate Neuraxial Anesthesia: was administered and sensory block is resolving Anesthetic Complications: no major complications apparent and Pt Satisfied with anesthetic care
[2024-09-06] MEDS ORDERED: HYDROmorphone INJ 1 MG/ML SYRINGE IV PRN (13:10)
[2024-09-06] MEDS ORDERED: bisacodyL 10 MG SUPP PR PRN (13:10)
[2024-09-06] MEDS ORDERED: METOCLOPRAMIDE HCL INJ 5 MG/ML 2 ML VIAL IV PRN (13:10)
[2024-09-06] MEDS ORDERED: NALOXONE HCL 0.4 MG/1 ML VIAL/CARP IV PRN (13:10)
[2024-09-06] MEDS ORDERED: hydrALAZINE HCL 20 MG/ML VIAL IV PRN (13:10)
[2024-09-06] MEDS ORDERED: NO NSAIDS SCH (13:10)
[2024-09-06] MEDS ORDERED: diphenhydrAMINE 50 MG/ML VIAL IV PRN (13:10)
[2024-09-06] MEDS ORDERED: HYDROmorphone INJ 0.5 MG/0.5 ML SYR IV PRN (13:10)
[2024-09-06] MEDS ORDERED: MAGNESIUM HYDROXIDE SUSP 30 ML UDC PO PRN (13:10)
[2024-09-06] MEDS: TAMSULOSIN HCL 0.4 MG CAP PO PRN (15:03)
--- NOTE | 2024-09-06 15:03 | Orthopedic Progress Note ---
Date of Service September 06, 2024 Assessment & Plan (1) Status post right knee replacement: Plan: POD 0- right TKA with Dr. Blanchard PT/OT to start tomorrow Ice to right knee as needed for pain/swelling Keep knee immobilizer on when in bed and when out of bed. OOB with assistance and a walker Pain medication as prescribed Some urinary retention - Flomax to be given/ordered. Nursing to bladder scan and cath PRN Eliquis to start tomorrow morning for DVT prophylaxis. Cefadroxil to start tomorrow after the completion of Ancef. May WBAT RLE Labs in the AM Case management for disposition. Plan for home with home health/PT tomorrow. Will re-eval in the AM and plan for discharge to home if doing well Findings discussed with Dr. Blanchard. Admission and Anticipated Discharge Date Admission Date: September 06, 2024 Subjective Patient doing well, sitting in chair. Had lunch and no post op nausea/vomiting. Feeling like he "can't pee". at bedside. Denies any chest pain or shortness of breath. Would like to get out of bed. Has been passing urine, just feels like he's not emptying completely. Physical Exam Musculoskeletal: Exam of his right leg: Knee immobilizer in place. Dressings on right leg clean, dry and intact. Full ankle ROM with normal strength with knee immobilizer in place. Able to lift leg off of bed. Dorsalis pedis and posterior tibial pulses 1+, distal sensation normal. Calf nontender with palpation. Tolerates gentle log rolling of right hip. Results & Data Vital Signs (Past 12 Hours) Vital Signs Temp Pulse Pulse Resp BP Pulse Ox O2 Del Method 09/06/24 14:08 36.4 C L 96 H 16 142/93 H 96 Room Air 09/06/24 13:00 37.3 C 89 14 117/63 95 Nasal Cannula 09/06/24 12:30 88 14 112/79 94 Nasal Cannula 09/06/24 12:00 90 16 132/88 94 Nasal Cannula 09/06/24 11:45 89 20 124/82 93 Nasal Cannula 09/06/24 11:30 932 H 18 105/71 95 Nasal Cannula 09/06/24 11:15 84 18 104/78 94 Nasal Cannula 09/06/24 11:05 36.6 C 86 21 117/79 96 Nasal Cannula 09/06/24 10:55 85 15 113/73 98 Nasal Cannula 09/06/24 10:45 81 18 107/75 98 Oxymask 09/06/24 10:38 36.3 C L 87 18 118/78 97 Oxymask 09/06/24 05:35 36.6 C 66 20 149/95 H 96 Room Air O2 Flow Rate 09/06/24 14:08 09/06/24 13:00 1 09/06/24 12:30 2 09/06/24 12:00 2 09/06/24 11:45 2 09/06/24 11:30 2 09/06/24 11:15 2 09/06/24 11:05 2 09/06/24 10:55 2 09/06/24 10:45 6 09/06/24 10:38 8 09/06/24 05:35 Diagnostic Findings Knee X-Ray 09/06/24 10:52 XR knee RT 1 or 2V routine HISTORY: 54 years-old Male Surgical Post Op right knee arthroplasty COMPARISON: July 11, 2024 TECHNIQUE: 2 views of the right knee FINDINGS: Total joint arthroplasty with patellar resurfacing. Anterior midline skin kristal with expected postoperative soft tissue swelling and deep tissue air. IMPRESSION: Satisfactory alignment of the right knee total joint arthroplasty. ACT 112: Negative or not required by law. The above report was generated using voice recognition software. It may contain grammatical, syntax or spelling errors. Electronically signed by: Betito Walters M.D. 09/06/2024 11:06 AM
[2024-09-06] MEDS: ORTHO JOINT ANESTHETIC ONE (15:05)
[2024-09-06] MEDS: oxyCODONE HCL IR 5 MG TAB (IMMEDIATE RELEASE) PO PRN (15:14)
[2024-09-06 16:15] VITALS: RESP 18
[2024-09-06] MEDS: ceFAZolin 3000MG 3,000 MG/72.5 ML BAG IV SCH (16:52)
[2024-09-06] MEDS: ceFAZolin 2000MG 2,000 MG/15 ML SYR IV SCH (18:02)
[2024-09-06] MEDS: TRANEXAMIC ACID / 0.7% NACL 1,000 MG/100 ML BAG IV SCH (18:02)
[2024-09-06] MEDS: SENNA 8.6 MG TAB PO SCH (20:01)
[2024-09-06] MEDS: DOCUSATE SODIUM 100 MG CAP PO SCH (20:01)
[2024-09-07 06:35] LABS: Hematocrit (blood only) 38.4 % (42.0-52.0); Mean Corpuscular Hemoglobin 30.7 pg (25.0-34.0); Mean Corpuscular Hgb Conc 36.5 g/dL (32.0-36.0); Mean Corpuscular Volume 84.2 fL (80.0-100.0); Mean Platelet Volume 10.1 fL (9.4-12.4); Platelet Count 241 K/uL (130-400); RDW Coefficient of Variation 12.7 % (11.5-14.5); RDW Standard Deviation 38.4 fL (36.4-46.3); Red Blood Count 4.56 M/uL (4.70-6.10); White Blood Count 20.61 K/ul (4.8-10.8)
[2024-09-07 06:55] LABS: BUN Creatinine Ratio 23.5 (10-20); Calcium 8.9 mg/dl (8.6-10.3); Creatinine Clr Calc Pharmacy 114.6 ml/min; Potassium 3.7 mmol/L (3.5-5.1)
[2024-09-07 07:11] VITALS: BP 145/75; PULSE 78; TEMP 98.1; O2SAT 95
[2024-09-07] MEDS: APIXABAN 2.5 MG TAB PO SCH (08:07)
[2024-09-07] MEDS: CETIRIZINE HCL 10 MG TABLET PO SCH (08:07)
[2024-09-07] MEDS: cefaDROXiL 500 MG CAP PO SCH (08:07)
[2024-09-07] MEDS: MULTIVITAMIN TAB PO SCH (08:07)
[2024-09-07] MEDS ORDERED: NON-FORMULARY MEDICATION (Multivitamin Tablet) PO SCH (09:00)
--- NOTE | 2024-09-07 09:04 | Orthopedic Progress Note ---
Date of Service September 07, 2024 Assessment & Plan (1) Status post right knee replacement: Plan: Stable postop. We talked about follow-up. Home and outpatient PT. If there is problems with pain swelling fevers etc., drainage. Call the office. Gave instructions on rest ice elevation home PT activity levels wound care elevation. We talked about medications. Continue Eliquis until further notice. Discussed pain pills and stool softener. He will see PT and OT today and we will reassess to see whether he is stable for discharge. Exercise regimen and the importance of elevation and rest are discussed. For now he will ambulate with a knee immobilizer until he can do several controlled straight leg raise. Otherwise he does not need the knee immobilizer. Home therapy/nursing will change his dressing on Thursday. Admission and Anticipated Discharge Date Admission Date: September 06, 2024 Subjective Some pain overnight controlled with medication. No chest pains or shortness of breath. No tingling or numbness. He has been able to void. Tolerating oral diet. Physical Exam Physical Exam: Unable to do an active straight leg raise. 5 out of 5 ankle and toe plantarflexion dorsiflexion and eversion strength. Sensation intact throughout the foot. The foot is warm with capillary refill less than 2 seconds. DP pulses trace PT pulse 1+ dressings clean and dry Results & Data Vital Signs (Past 12 Hours) Vital Signs Temp Pulse Resp BP Pulse Ox O2 Del Method 09/07/24 07:08 36.7 C 78 18 145/75 H 95 Room Air 09/07/24 03:55 36.9 C 99 H 18 114/71 99 Room Air 09/06/24 23:31 36.7 C 79 18 122/68 94 Room Air Laboratory Results Laboratory Results WBC 20.61 K/ul (4.8-10.8) H 09/07/24 05:27 RBC 4.56 M/uL (4.70-6.10) L 09/07/24 05:27 Hgb 14.0 g/dl (14.0-18.0) 09/07/24 05:27 Hct 38.4 % (42.0-52.0) L 09/07/24 05:27 MCV 84.2 fL (80.0-100.0) 09/07/24 05:27 MCH 30.7 pg (25.0-34.0) 09/07/24 05:27 MCHC 36.5 g/dL (32.0-36.0) H 09/07/24 05:27 RDW Std Deviation 38.4 fL (36.4-46.3) 09/07/24 05:27 RDW Coeff of Kushal 12.7 % (11.5-14.5) 09/07/24 05:27 Plt Count 241 K/uL (130-400) 09/07/24 05:27 MPV 10.1 fL (9.4-12.4) 09/07/24 05:27 Sodium 135 mmol/L (136-145) L 09/07/24 05:27 Potassium 3.7 mmol/L (3.5-5.1) 09/07/24 05:27 Chloride 101 mmol/L (98-107) 09/07/24 05:27 Carbon Dioxide 29 mmol/L (21-32) 09/07/24 05:27 Anion Gap 5 (3-11) 09/07/24 05:27 BUN 24 mg/dl (6-23) H 09/07/24 05:27 Creatinine 1.02 mg/dl (0.6-1.4) 09/07/24 05:27 Est Cr Clr Drug Dosing 114.6 ml/min 09/07/24 05:27 eGFR 87.34 09/07/24 05:27 BUN/Creatinine Ratio 23.5 (10-20) H 09/07/24 05:27 Glucose 130 mg/dl (70-99(Fasting)) H 09/07/24 05:27 Calcium 8.9 mg/dl (8.6-10.3) 09/07/24 05:27 Impressions Knee X-Ray 09/06/24 10:52 XR knee RT 1 or 2V routine HISTORY: 54 years-old Male Surgical Post Op right knee arthroplasty COMPARISON: July 11, 2024 TECHNIQUE: 2 views of the right knee FINDINGS: Total joint arthroplasty with patellar resurfacing. Anterior midline skin kristal with expected postoperative soft tissue swelling and deep tissue air. IMPRESSION: Satisfactory alignment of the right knee total joint arthroplasty. ACT 112: Negative or not required by law. The above report was generated using voice recognition software. It may contain grammatical, syntax or spelling errors. Electronically signed by: Betito Walters M.D. 09/06/2024 11:06 AM
--- OUTSIDE RECORDS SUMMARY | 2024-09-07 09:42 | External Medical Summary | Summary of Care ---
Author Name Unknown Organization [facility] Address [address] [facility] [place] [address] Phone [phone] Care Team Providers Care Enlisted Aircrew/Aerial Observer/Gunner Name Role Phone Unavailable Primary Care Provider Unavailabl e Reason for Visit * Reason Comments Outpatient Testing Encounter Details Date Type Department Care Team (Late st Contact Info) Description 08/26/2024 7:40 AM EDT Laboratory Laboratory, [facility] [address] [facility] [phone] [facility] [address] [facility] [address] Other specified pre-operative examination*; Dyslipidemia, goal LDL below 100 Allergies Active Allergy Reactions Criticality Noted Date Comments Aspirin Edema face/lips/tongue,Hives High 010 Celecoxib Edema face/lips/tongue 11/17/2008 Nsaids Edema face/lips/tongue High 11/17/2008 HIVES documented as of this encounter (statuses as of 08/26/2024) Medications Hydrocortisone (Perianal) 2.5 % External Cream (Proctozone-HC)In dications:Hemorrh oids, external without complications Administer into the rectum 2 times a day. 28 g 1 Active Cetirizine HCl 10 MG Oral Tablet (ZyrTEC) Take 1 Tablet by mouth in the morning. Active Multivitamin Adult Oral Tablet Take by mouth. Active Rosuvastatin Calcium 5 MG Oral Tablet (Crestor)Indicati ons:Dyslipidemia, goal LDL below 100 Take 1 Tablet by mouth in the morning. 90 Tablet 3 5 Active documented as of this encounter (statuses as of 08/26/2024) Active Problems Problem Noted Date Diagnosed Date Preoperative general physical examination 2024 Obesity, Class II, BMI 35-39.9 09/25/2022 Primary osteoarthritis of right knee 01/17/2022 documented as of this encounter (statuses as of 08/26/2024) Resolved Problems Problem Noted Date Diagnosed Date Resolved Date Pyogenic granuloma 01/16/2014 7 Other specified urticaria 12/15/2008 Overview (08/10/2024): ICD-10 Update of Inactive Term ADVERSE EFFECT OF UNSPECIFIE D DRUG, ASA, NSAID'S 11/17/2008 03/30/2017 Pain in limb 12/22/2007 2010 NO KNOWN PROBLEMS 12/19/2005 11/17/2008 documented as of this encounter (statuses as of 08/26/2024) Immunizations Name Administration Dates Next Due Covid-19 Ad26, Single Dose (Timi/J&J) 021 PPD 10/28/2011 Seasonal Influenza Vac., MDV , IM, 0.5 mL (Fluzone) 03/23/2014,2010,01/29/2009 Seasonal Influenza, PF, 6 M & above, IM , (FluLaval or Fluzone) 05/12/2023,01/17/2022 TDAP (age 10 and older)(Boostrix) 10/12/2020 TDAP, Age 7 and older, IM (Adacel) 2010 Zoster Vaccine Recombinant (Shingrix) 12/13/2020 ,10/12/2020 documented as of this encounter Social History Tobacco Use Types Packs/Day Years Used Date Smoking Tobacco: Never Smokeless Tobacco: Never Comments:no passive smoke ex posures Alcohol Use Standard Drinks/Week Comments Yes 1 (1 standard drink = 0.6 oz pur e alcohol) 1 x per week PHQ-2 Answer Date Recorded PHQ Adult Total Score 0 01/17/2022 Hunger Vital Sign Answer Date Recorded Within the past 12 months, y ou worried that your food would run out before you got the money to buy more. Never true 06/30/19 25 Within the past 12 months, t he food you bought just didn't last and you didn't have money to get more. Never true 06/30/2024 Childcare Answer Date Recorded Do you feel overwhelmed with taking care of a child, family member or friend? No 06/30/2024 Does your family need help f inding childcare? (Household - for ages 0-17 years) Not on file 06/30/2024 Clothing Answer Date Recorded Have you been unable to get clothing when it was really needed? No 06/30/2024 Is your family able to get c lothes or diapers when needed? (Household - for ages 0-17 years) Not on file 06/30/2024 Personal Safety Answer Date Recorded Do you feel unsafe or have concerns for your saf ety? No 06/30/2024 Do you have concerns for you r family's safety? (Household - for ages 0-17 years) Not on file 06/30/2024 Utilities Answer Date Recorded Do you have trouble paying y our heating, water, or electric bill? No 06/30/2024 Is your family able to pay t he heat, water, or electric bill? (Household - for ages 0-17 years) Not on file 06/30/2024 Does your family have access to good internet? (Household - for ages 0-17 years) Not on file 06/30/2024 Employment Status Answer Date Recorded Are you unemployed or without regular income? No 06/30/2024 Does the household have a re gular source of income? (Household - for ages 0-17 years) Not on file 06/30/2024 Social Connections Answer Date Recorded How often do you feel lonely or isolated from th ose around you? Never 06/30/2024 Financial Resource Strain Answer Date R ecorded Do you have any trouble payi ng for your medications, or do you think you might in the future? No 06/30/2024 Does your family have troubl e paying for medicine? (Household - for ages 0-17 years) Not on file 06/30/2024 Transportation Needs Answer Date Record ed Do you have trouble getting a ride to medical visits or work? (Adult - for ages 18 years and over) Not on file 06/30/2024 Does your family have a hard time getting a ride to doctors visits? (Household - for ages 0-17 years) Not on file 06/30/2024 Has lack of transportation k ept you from medical appointments, meetings, work, or from getting things needed for daily living? Check all that apply. No 06/30/2024 Do you (or your family) have trouble finding or paying for a ride (transportation)? (Household - for ages 0-17 years) Not on file 06/30/2024 Housing Stability Answer Date Recorded Do you currently live in a s helter or have no steady place to sleep at night? No 06/30/2024 Do you think you are at risk of becoming homeless? (Adult - for ages 18 years and over) Not on file 06/30/2024 Does your family worry about paying for your home or becoming homeless? (Household - for ages 0-17 years) Not on file 0 06/30/2024 Are you homeless or worried that you might be in the future? No 06/30/2024 Are you (or your family) alejandro eless or worried that you might be in the future? (Household - for ages 0-17 years) Not on file Food Insecurity Answer Date Recorded Within the past 12 months, y ou worried that your food would run out before you got the money to buy more. Never true 06/30/19 25 Within the past 12 months, t he food you bought just didn't last and you didn't have money to get more. Never true 06/30/2024 Do you need food for this week? 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 file Not on file Not on file documented as of this encounter Plan of Treatment Upcoming Encounters Date Type Department Care Team (Late st Contact Info) Description 06/21/2025 8:00 AM EST Office Visit Cardiology, [facility] [address] [place] [phone] Sho Mendez CRNP [address] [place] [phone] Pending Results Name Type Priority Associated Diagnoses Date /Time PT INR Lab Routine Other specified pre-operative examination 08/26/2024 7:45 AM EDT CBC WITH WBC DIFFERENTIAL Lab Routine Other specified pre-operative examination 08/26/2024 7:45 AM EDT BASIC METABOLIC PANEL Lab Routine Other specified pre-operative examination 08/26/2024 7:45 AM EDT TYPE AND SCREEN Lab Routine Other specified pre-operative examination 08/26/2024 7:45 AM EDT LIPID PANEL WITH DIRECT LDL IF TG IS HIGH Lab Routine Dyslipidemia, goal LDL below 100 08/26/2024 7:45 AM EDT ALT Lab Routine Dyslipidemia, goal LDL below 100 08/26/2024 7:45 AM EDT AST Lab Routine Dyslipidemia, goal LDL below 100 08/26/2024 7:45 AM EDT CBC Lab Routine Other specified pre-operative examination 08/26/2024 7:45 AM EDT DIFFERENTIAL, AUTOMATED Lab Routine Other specified pre-operative examination 08/26/2024 7:45 AM EDT Scheduled Orders Name Type Priority Associated Diagnoses Orde r Schedule PT INR Lab Routine Other specified pre-operative examination Expected: 08/26/2024, Expires: 08/26/2025 CBC WITH WBC DIFFERENTIAL Lab Routine Other specified pre-operative examination Expected: 08/26/2024, Expires: 08/26/2025 BASIC METABOLIC PANEL Lab Routine Other specified pre-operative examination Expected: 08/26/2024, Expires: 08/26/2025 TYPE AND SCREEN Lab Routine Other specified pre-operative examination Expected: 08/26/2024, Expires: 09/25/2025 Scheduled Procedures Name Priority Associated Diagnoses Date/Ti me COLONOSCOPY FLEXIBLE PROXIMAL DIAGNOSTIC Recall History of colon polyps Health Maintenance Due Date Last Done Comments Depression Screening 1982 HIV Screening 1985 Hepatitis C Screening 1988 Hepatitis B Vaccine (1 of 3 - 19+ 3-dose series) 1989 Cologuard 2015 Fecal Occult Blood Test 2015 Sigmoidoscopy 2015 Pneumococcal Vaccine: 50+ Years (1 of 1 - PCV) 2020 Colonoscopy 12/19/2023 12/18/2020, 12/18/2020 Colorectal Cancer Screening 12/19/2023 COVID-19 Vaccine (2 - season) 2024 07/22/2020 Influenza Vaccine (FLU shot) (Season Ended) 2025 05/12/2023, 01/17/2022, 01/17/2022, Additional history exists Diabetes Screening 06/27/2027 06/27/2024, 0 09/27/2022, 10/12/2020, Additional history exists Lipid Panel 06/27/2029 06/27/2024, 05/, 10/12/2020, Additional history exists DTap/Tdap Vaccines (3 - Td or Tdap) 10/12/2030 10/12/2020, 2010 Zoster Vaccines Completed 12/13/2020, 10/12/2020 HPV (Gardasil) Vaccine Aged Out No lo nger eligible based on patient's age to complete this topic MENINGOCOCCAL (MENACTRA/MENVEO) Aged Out No longer eligible based on patient's age to complete this topic Meningitis B Vaccine (Bexsero/Trumemba) Aged Out No longer eligible based on patient's age to complete this topic documented as of this encounter Medical Devices Not on filedocumented as of this encounter Visit Diagnoses Diagnosis Other specified pre-operative examination- Primary Dyslipidemia, goal LDL below 100 Other and unspecified hyperlipidemia documented in this encounter
--- OUTSIDE RECORDS SUMMARY | 2024-09-07 09:43 | External Medical Summary | Summary of Care ---
Author Name Unknown Organization [facility] Address [address] [facility] [place] [address] Phone [phone] Care Team Providers Care Clean Energy Policy Analyst Name Role Phone Unavailable Primary Care Provider Unavailabl e Reason for Visit * Reason Comments Outpatient Testing Encounter Details Date Type Department Care Team (Late st Contact Info) Description 08/26/2024 7:40 AM EDT Laboratory Laboratory, [facility] [address] [facility] [phone] [facility] [address] [facility] [address] Other specified pre-operative examination*; Dyslipidemia, goal LDL [...] 06/21/2025 8:00 AM EST Office Visit Cardiology, [facility] [address] [place] [phone] Sho Mendez CRNP [address] [place] [phone] Pending Results Name Type Priority Associated Diagnoses [...]
--- OUTSIDE RECORDS SUMMARY | 2024-09-07 09:43 | External Medical Summary | Continuity of Care Document ---
Author Name Unknown Organization [facility] [id number] Address [address] [place] [phone] Encounter [facility] FINNBR [id number] Date(s): 08/23/24 - 08/23/24 [facility] [address] [place], [place] [address] [facility] [address] [place] [address] Encounter Diagnosis Osteoarthritis of right knee(Discharge Diagnosis) - 08/23/24 Discharge Disposition: Home or Self Care Attending Physician: JORGE Griffin, Sole Brian Referring Physician: MD Santo, Fabian Barker Encounter Type: Clinic Allergies, Adverse Reactions, Alerts Substance Criticality Severity Reaction Reaction Severity Status NSAIDs Unable to assess criticality Moderate Swelling Active Medications Euflexxa 10 mg/mL intra-articular solution Start: 02/23/24 8:03:00 AM EDT, 20 mg =, intra-articular, q7days, Disp# 6 mL, Refills: 0, 3 syringes for R knee. Please ship to physician's office: [address] [place] [address]. [address] [address],Note to Pharmacy: R KNEE DJD [id number], Pharmacy: [facility] Start Date: 02/23/24 Stop Date: 03/15/24 Status: Ordered Quantity: 6.0 Unit: mL Repeat number: 1 Indications: Pain in right knee; Unilateral primary osteoarthritis, right knee; multivitamin Start: 01/04/20 3:08:00 PM EDT, 1 tab, PO, Daily Start Date: 01/04/20 Status: Ordered Repeat number: 1 ZyrTEC 10 mg oral tablet Start: 01/04/20 3:09:00 PM EDT, 1 tab, PO, Daily, PRN: as needed for allergy symptoms Start Date: 8/26/20 Status: Ordered Repeat number: 1 Mental Status 08/23/24 Barriers to Learning one year None evide nt Mandatory Health Literacy Documentation Yes Health Literacy Communication Barriers N ever Primary Language Uzbek Problem List Condition Confirmation Course Effective Dates Status H ealth Status Informant Knee pain, right Confirmed Active Osteoarthritis of right knee Confirmed Active MCL sprain of right knee Confirmed Active Bakers cyst Confirmed Active Diagnosis Diagnosis Type Effective Dates Health Status Clinical Service Informant Osteoarthritis of right knee Discharge Diagnosis 08/23/24 Procedures Procedure Date Related Diagnosis Body Site Status Elbow 1 Completed Hip arthroplasty 2 Comple niecy Knee 3 Completed Shoulder 4 Completed 1right elbow loose body removal 2left 3right 4Both Vital Signs Most recent to oldest [Reference Range]: 1 Temperature [36.5-37.9 DegC] 36.2 DegC *LOW* (08/23/24 11:11 AM) Blood Pressure 116/82mmHg (08/23/24 11:11 AM) Social History Social History Type Response Smoking Status Never smoked cigaret willie Sex Male Sex Representation Male (finding) Pre-OP H & P * JORGE Griffin, Sole R: PERFORM, MODIFY, MODIFY Event Display: Pre-OP H & P Authored Date: [id number] Name: LEIGH ECHEVERRIA Patient Number: [id number] : 1970 Date of Service: 08/23/2024 Chief Complaint Preop visit Right TKA History of Present Illness Leigh is a 54 year old male, here today for preoperative history and physical. He is scheduled tohave a right total knee arthroplasty with Dr. Blanchard on September 06, 2024. He has done cortisone injections as well as viscosupplementation for his knee. His last series of Euflexxa was completed March 2024. He states that about a month ago his pain started becoming more severe. Driving causes his pain to be a 7 or 8 out of 10. Pain is located on the medial aspect of the patella and pain radiates up and down his thigh and lower leg. He states clicking and popping is also started. He notes that sitting and standing he experiences numbness droplets to his calf. It affects allof his daily activities. He has had loss of strength when using stairs. No instability issues with the right knee. He has tried no tqjq-fjw-jedbnbm brace. He is an avid bean picker machine operator. Would like to continue to be active. He does have a history of having a previous hip replacement. He is done well with that. Due to his failure of conservative treatment and progressively worsening symptoms he wishes to proceed with an elective right total knee arthroplasty. Review of Systems Denies any recent cough, cold, fevers, chills or flulike symptoms. He denies any lightheadedness, dizziness, syncopal episodes, headaches, migraines or seizures. Denies any bleeding or clotting disorders or history of DVT or pulmonary embolism. Denies any recent hospitalizations. Denies any historyof metal sensitivity, latex allergy or MRSA. Denies any shortness of breath or chest pain. Denies abdominal pain, heartburn, indigestion, nausea, vomiting, diarrhea or constipation. Denies any urinary tract infections. Denies any hearing or vision changes. Denies any dental problems. Physical Exam Vitals & Measurements T: 36.2 °C BP: 116/82 SpO2: 96% Vitals: Last Updated 08/23/24 11:11 Date Temp BP Location Pulse RR SpO2 Pain 08/23/24 36.2 116/82 96 4 07/11/24 36.4 140/88 78 97 07/11/24 5 General: Well-dressed, well-nourished. Normal mood and affect. Alert and oriented x3. HEENT: Head: Atraumatic, normocephalic. Eyes: Extraocular movements intact, pupils equal round and reactive to light, sclera normal. Ears: Ears grossly normal, TMs are clear normal light reflex. Nose: Nares are patent bilaterally. Throat: Oropharynx clear, mucous membranes moist, good dentition, uvula midline. Neck: Supple, no lymphadenopathy, nontender palpation, full range of motion. Cardiac: Regular rate and rhythm, normal S1, S2. No murmurs, rubs or gallops appreciated. Lungs: Clear to auscultation bilaterally. No adventitious sounds. No accessory muscle use. Abdomen: Soft, nontender, nondistended, normal bowel sounds heard in all 4 quadrants. Extremities: Focusing on the patient's RIGHT lower extremity: Gait Normal Varus Alignment Trace DP and Trace PT pulses Capillary refill less than 2 seconds Sensation intact to light touch Motor strength: 5/5 Knee flexion and extension; ankle plantarflexion, dorsiflexion, inversion, and eversion. Knee (left) ROM: 0°/5 °/ 120° Hip ROM: Painless, Equal to other side but causes knee pain Active straight leg raise intact -NEGATIVE Seated straight leg raise - NEG seated and supine leg raise + POSITIVE tenderness over Medial joint line - NEG posterior drawer - NEG Dania Passive straight leg raise negative Absent Effusion in knee joint Trace MCL laxity at 20 degrees Stable to Varus and Valgus at 0° Small popiteal cyst palpable Diagnostic Results 4 views of the b/l knees obtained today and personally interpreted by me taken at [facility] show drill bit in the left femur. Arthritis of the right knee, medial compartment, with varus alignment.Patellar spurring.Osteophytes in patellofemoral joint.No fractures. Kclt-da-xzyf arthritis in medial compartment of right knee with slight joint subluxation. 2 view x-ray of right knee obtained at last visit with sizing ball and show arthritis of the right knee, medial compartment. Varus alignment. Assessment/Plan 1. Osteoarthritis of right knee Plan: Patient is scheduled for right total knee arthroplasty with Dr. Blanchard on September 06, 2024. Risks and complications of the procedure were explained to the patient and include but are not limited to infection, pain, bleeding, scarring, nerve and blood vessel damage, wound problems, weakness, stiffness, incomplete relief of symptoms, tendon or ligament injury, hardware failure, wear, loosening, fracture, blood clots, embolisms, heart attack, stroke and . All questions were answered and informed consent was obtained. Patient had preadmission testing a few weeks ago which he obtained a preoperative CBC, BMP, PT, PTT, type and screen, EKG and chest x-ray. We will have him repeat the CBC, BMP, PT, PTT and type and screen prior to surgery in order to have this completed an appropriate timeframe. He has been cleared by his family physician as well as his rn telephonic. We will use Eliquis 2.5 mg p.o. twice daily postoperatively for 4-6 weeks after surgery for DVT prop hylaxis. His pain medication will be prescribed at the time of discharge from the hospital. He most likely will go home with home health and will attend outpatient physical therapy when that iscompleted. He would like to go to our office for physical therapy. He has a walker and a cane a vailable to him for use after his surgery. He was instructed on how to use the CHG wipes preoperatively. He will follow-up as scheduled for postoperative appointment on September 21, 2024. Questions were answered. He knows to call with any further problems, questions or concerns. He understands and agrees with the plan. This chart was completed utilizing [employer] voice recognition software. Grammatical errors, random word insertions, pronoun errors, and in complete sentences are an occasional consequence of the system. Any questions or concerns about the content, text, or information contained within the body of this dictation should be addressed directly to the provider for clarification. Problem List/Past Medical History Ongoing Bakers cyst Knee pain, right MCL sprain of right knee Osteoarthritis of right knee High cholesterol Left ventricular hypertrophy Procedure/Surgical History •Shoulder•Hip arthroplasty•Knee•Elbow Medications Home cetirizine(ZyrTEC 10 mg oral tablet), 10 mg= 1 tab, PO, Daily, PRN multivitamin, 1 tab, PO, Daily Allergies NSAIDs (Moderate) Swelling Aspirin - facial swelling Celebrex - facial swelling Social History Patient is . Currently employed. Denies any tobacco use. Drinks 1-2 alcoholic drinks per week. Denies any recreational drug use. He has a walker and a cane for use after surgery. Family History Reviewed and noncontributory. Electronic Signature on File Electronically Reviewed/Signed by: Sole Griffin PA-C Author Signature Dt/Tm:08/23/2024 03:34 PM Division of Sports Medicine Electronically Reviewed/Signed by: Fabian Blanchard MD Cosigner Signature Dt/Tm: 08/23/2024 03:49 PM Division of Sports Medicine [facility] Patient Care team information Care Team Personnel Name: Mary Tate Position: HIS Supervisor_P Member Role: HIS Lifetime Insurance Providers Guarantor name: LEIGH ECHEVERRIA Health Plan Information #: 1 Payer: [employer] Member Number: [id number] Policy Number: NA Group Number: [id number] Payer Identifier: [id number] Health Plan Information #: 2 Payer: [employer] Member Number: [id number] Policy Number: NA Group Number: [id number] Payer Identifier: [id number]
--- OUTSIDE RECORDS SUMMARY | 2024-09-07 09:43 | External Medical Summary ---
Author Name Unknown Address Unknown Organization [facility] [address] [place] [id number] Laboratory Report Ordering Provider Test Date Status DEBO GREGORIOMITA 08/26/2024 07:45:28 Final Warfarin Therapy
INR: 2 .0-3.0 conventional anticoagulation
INR: 2.5- 3.5 high intensity anticoagulation Observation Date Value Abnormality Reference (Units ) Status PT 08/26/2024 07:45:28 13.4 11.6-15.2 (seconds) Final INR 08/26/2024 07:45:28 1.0 0.8-1.2 Final Performing Location [facility] [address] [place] [id number]
--- OUTSIDE RECORDS SUMMARY | 2024-09-07 09:43 | External Medical Summary ---
Author Name Unknown Address Unknown Organization [facility] [address] [place] [id number] Laboratory Report Ordering Provider Test Date Status DONOVAN SHOEMAKER 08/26/2024 07:45:28 Final Observation Date Value Abnormality Reference (Units ) Status AST (Aspartate aminotransferase) 08/26/2024 07:45:28 27 10-50 (U/L) Final Performing Location [facility] [address] [place] [id number]
--- OUTSIDE RECORDS SUMMARY | 2024-09-07 09:43 | External Medical Summary ---
Author Name Unknown Address Unknown [facility] [facility] [address] [place] [id number] Laboratory Report Ordering Provider Test Date Status CARMITA GREGORIO 08/26/2024 07:45:28 Final Observation Date Value Abnormality Reference (Units ) Status BUN 08/26/2024 07:45:28 17 6-20 (mg/dL) Final Creatinine 08/26/2024 07:45:28 1.2 0.6-1.2 (mg/dL) Final Glomerular filtration rate/1.73 sq M.predicted [Volume Rate/Area] in Serum, Plasma or Blood by Creatinine-based formula (CKD-EPI) 08/26/2024 07:45:28 75 >=60 (mL/min) Final eGFR is calculated based on the CKD-EPI 2020 equation. Sodium 08/26/2024 07:45:28 142 135-146 (m mol/L) Final Potassium 08/26/2024 07:45:28 4.4 3.5-5.1 (m mol/L) Final Cl 08/26/2024 07:45:28 106 98-107 (mm ol/L) Final CO2 08/26/2024 07:45:28 26 22-32 (mmo l/L) Final Anion gap 08/26/2024 07:45:28 10 7-15 (mmol /L) Final Glucose 08/26/2024 07:45:28 101 70-120 (mg /dL) Final Calcium 08/26/2024 07:45:28 9.7 8.4-10.2 ( mg/dL) Final Performing Location [facility] [address] [place] [id number]
--- OUTSIDE RECORDS SUMMARY | 2024-09-07 09:43 | External Medical Summary ---
Author Name Unknown Address Unknown Organization [id number]:[facility] - [address] [place] [id number] Laboratory Report Ordering Provider Test Date Status DARLINECARMITA 08/26/2024 07:45:28 Final Observation Date Value Abnormality Reference (Units ) Status ABO 08/26/2024 07:45:28 O Final RH 08/26/2024 07:45:28 Positive Final RED BLOOD CELL ANTIBODY SCREEN 08/26/2024 07:45:28 Negative Final SPECIMEN EXPIRATION DATE 08/26/2024 07:45:28 08/29/2024 23:59 Final Performing Location [facility] - [address] [place] [id number]
--- OUTSIDE RECORDS SUMMARY | 2024-09-07 09:43 | External Medical Summary ---
Author Name Unknown Address Unknown Organization [id number][facility] [address] [place] [id number] Laboratory Report Ordering Provider Test Date Status CARMITA GREGORIO 08/26/2024 07:45:28 Final Observation Date Value Abnormality Reference (Units ) Status WBC, Total 08/26/2024 07:45:28 7.10 4.00-10.8 0 (K/uL) Final RBC 08/26/2024 07:45:28 5.26 4.50-5.25 (M/uL) Final Hemoglobin 08/26/2024 07:45:28 16.4 14.0-16.8 (g/dL) Final HCT 08/26/2024 07:45:28 44.9 40.0-48.4 (%) Final MCV 08/26/2024 07:45:28 85.4 82.0-99.5 (fL) Final MCH 08/26/2024 07:45:28 31.2 27.0-34.0 (pg) Final MCHC 08/26/2024 07:45:28 36.5 32.0-36.0 (g/dL) Final RDW 08/26/2024 07:45:28 13.0 11.5-15.5 (%) Final Platelets 08/26/2024 07:45:28 240 140-400 (K /uL) Final MPV 08/26/2024 07:45:28 10.2 6.6-11.1 ( fL) Final Performing Location LAB[facility]ATORY [facility] 0 - [address] [place] [id number]
--- OUTSIDE RECORDS SUMMARY | 2024-09-07 09:43 | External Medical Summary ---
Author Name Unknown Address Unknown Organization K[facility] [address] [place] [id number] Laboratory Report Ordering Provider Test Date Status DONOVAN SHOEMAKER 08/26/2024 07:45:28 Final Observation Date Value Abnormality Reference (Units ) Status ALT (Alanine aminotransferase) 08/26/2024 07:45:28 46 10-50 (U/L) Final [facility] [address] [place] [id number]
--- OUTSIDE RECORDS SUMMARY | 2024-09-07 09:43 | External Medical Summary ---
Author Name Unknown Address Unknown Organization [id number][facility] [address] [place] [address] Laboratory Report Ordering Provider Test Date Status CARMITA GREGORIO 08/26/2024 07:45:28 Final Observation Date Value Abnormality Reference (Units ) Status SYNC LEUKOCYTES IN BLOOD BY AUTOMATED COUNT 08/26/2024 07:45:28 7.10 4.00-10.80 (K/uL) Final Segs 08/26/2024 07:45:28 60.2 40.0-75.0 (%) Final Lymphs % 08/26/2024 07:45:28 31.8 18.0-42.0 (%) Final Monos 08/26/2024 07:45:28 6.3 1.0-11.0 (%) Final Eosinophils 08/26/2024 07:45:28 1.7 0.0-6.0 (%) Final Basos 08/26/2024 07:45:28 0.0 0.0-2.0 (%) Final Absolute Segs 08/26/2024 07:45:28 4.27 1.80-7.70 (K/uL) Final Lymphs, absolute 08/26/2024 07:45:28 2.26 1.00-4.80 (K/ul) Final Monos, Abs 08/26/2024 07:45:28 0.45 0.00-1.10 (K/uL) Final Eos, Abs 08/26/2024 07:45:28 0.12 0.00-0.70 (K/uL) Final Basos, Abs 08/26/2024 07:45:28 0.00 0.00-0.20 (K/uL) Final Performing Location [facility] [place] [address] - [address] [place] [id number]
--- OUTSIDE RECORDS SUMMARY | 2024-09-07 09:43 | External Medical Summary | Summary of Care ---
Author Name Unknown Organization [facility] Address [address] [facility] [place] [address] Phone [phone] Care Team Providers Care Baccarat Manager Name Role Phone Unavailable Primary Care Provider Unavailabl e Encounter Details Date Type Department Care Team (Late st Contact Info) Description 08/19/2024 10:40 AM EDT Telemedicine Family Practice [facility] [address] [place] [address] Elvi Estrada CRNP [address] [place] [address] No diagnosis on [place] I* Allergies Active Allergy Reactions Criticality Noted Date Comments Aspirin Edema face/lips/tongue,Hives High 010 Celecoxib Edema face/lips/tongue 11/17/2008 Nsaids Edema face/lips/tongue High 11/17/2008 HIVES documented as of this encounter (statuses as of 08/19/2024) Medications Hydrocortisone (Perianal) 2.5 % External Cream [...] as of this encounter (statuses as of 08/19/2024) Active Problems Problem Noted Date Diagnosed Date Preoperative general physical examination 2024 Obesity, Class II, BMI 35-39.9 09/25/2022 Primary osteoarthritis of right knee 01/17/2022 documented as of this encounter (statuses as of 08/19/2024) Resolved Problems Problem Noted Date Diagnosed Date Resolved Date Pyogenic granuloma 01/16/2014 7 Other specified urticaria 12/15/2008 Overview (08/10/2024): ICD-10 Update of Inactive Term ADVERSE EFFECT OF UNSPECIFIE D DRUG, ASA, NSAID'S 11/17/2008 03/30/2017 Pain in limb 12/22/2007 2010 NO KNOWN PROBLEMS 12/19/2005 11/17/2008 documented as of this encounter (statuses as of 08/19/2024) Immunizations Name Administration Dates Next Due Covid-19 [...] No 06/30/2024 Does the household have a [facility] source of income? 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 Each session showing "waiting for patient to join". No charge Keyla, MSN, [facility] documented in this encounter Plan of Treatment Upcoming Encounters Date Type Department Care Team (Late st Contact Info) Description 06/21/2025 8:00 AM EST Office Visit Cardiology, [facility] [address] [place] [phone] Sho Mendez CRNP [address] [place] [address] Scheduled Procedures Name Priority Associated Diagnoses Date/Ti [...] 12/18/2020 Colorectal Cancer Screening 12/19/2023 COVID-19 Vaccine ( - season) 2024 07/22/2020 Influenza Vaccine (FLU shot) (Season Ended) 2025 05/12/2023, 01/17/2022, 01/17/2022, Additional history exists Diabetes Screening 06/27/2027 06/27/2024, 0 09/27/2022, 10/12/2020, Additional history exists Lipid Panel 06/27/2029 06/27/2024, 05/2 , 10/12/2020, Additional history exists DTap/Tdap Vaccines (3 [...] as of this encounter Visit Diagnoses Diagnosis No diagnosis on [place] I- Primary Observation of other suspected mental condition documented in this encounter
--- OUTSIDE RECORDS SUMMARY | 2024-09-07 09:43 | External Medical Summary ---
Author Name Unknown Address Unknown Organization K01:[facility] [place] - [address] [facility] [place] [id number] Laboratory Report Ordering Provider Test Date Status DONOVAN SHOEMAKER 08/26/2024 07:45:28 Final Observation Date Value Abnormality Reference (Units ) Status Triglyceride 08/26/2024 07:45:28 193 Above high normal <=174 (mg/dL) Final Triglyceride Reference Range s (mg/dL):
<150 Acceptable
150-174 Borderline high
175-499 High
>=500 Very high Cholesterol 08/26/2024 07:45:28 175 <200 (mg /dL) Final Total Cholesterol Reference Ranges (mg/dL):
<200 Desirable
200-239 Borderline high
>=240 High HDL 08/26/2024 07:45:28 32 Below low normal >39 (mg/dL) Final HDL Cholesterol Reference Ra nges (mg/dL):
>=60 High (Desirable)
<50 Low (Undesirable) For Females
<40 Low (Undesirable) For Males NON-HDL CHOLESTEROL 08/26/2024 07:45:28 143 <=159 (mg/dL) Final Non-HDL Cholesterol Referenc e Range (mg/dL):
<100 Target level for high risk ASCVD patient
<130 Optimal for general population
130-159 Near optimal for general population
160-189 Borderline High
190-219 High
>=220 Very High LDL, (calculated) 08/26/2024 07:45:28 104 <= 129 (mg/dL) Final LDL Cholesterol Reference Ra nges (mg/dL):
<70 Target level for high risk ASCVD patient
<100 Optimal for general population
100-129 Near optimal for general population
130-159 Borderline high
160-189 High
>=190 Very high
Patient has high LDL cholesterol. Consider screening for Familial Hypercholesterolemia. Performing Location [facility] [place] - [address] [facility] [address]
--- NOTE | 2024-09-07 10:18 | Discharge Summary ---
Date of Service September 07, 2024 Discharge Data Procedures Performed Operation Date: 09/06/24 07:00 Actual Procedures p Right Total Knee Arthroplasty(Right) - Fabian Blanchard MD Hospital Course (1) Status post right knee replacement: Patient was kept in observation at [facility] after undergoing an elective right total knee arthroplasty by Dr. Blanchard on September 06, 2024. P atient surgery was performed with spinal anesthesia peripheral nerve block. He tolerated the procedure well without any intraoperative complications. He was given 3 g of IV Ancef which was continued for 24 hours after surgery. He was also given 1 g of IV TXA preoperatively for bleeding prophylaxis which was continued for a second dose 6 hours after the initial dose. He was placed on cefadroxil 500 mg p.o. twice daily for 7 days after surgery once the Ancef completed. He was allowed out of bed, weight-bear as tolerated with the knee immobilizer in place and the assistance of a walker. His home medications were continued. He was given a regular diet which she tolerated well without any postoperative nausea or vomiting. He did not develop any postoperative lightheadedness, dizziness, chest pains or shortness of breath. His pain was well-controlled with oral pain medication which included Tylenol, tramadol, oxycodone. He also had IV Dilaudid available to him as needed. His vital signs remained stable during his inpatient stay. He had a CBC and a BMP performed on postoperative day 1 which showed an elevated white blood cell count typically due to the IV dexamethasone and recent surgery. His hemoglobin was 14.0 and hematocrit was 38.4. No blood transfusion or wounds were necessary during this inpatient stay. His sodium level was low at 135. Physical therapy and Occupa tional Therapy consult was placed. He was seen and evaluated on postoperative day 1 and was deemed safe for discharge to home. Discharge instructions were reviewed with the patient and provided. All questions were answered. He was started on Eliquis 2.5 mg p.o. twice daily for 4 to 6 weeks after surgery for DVT prophylaxis on September 07, 2024. He was given prescriptions for his cefadroxil, Eliquis, oxycodone and tramadol for use at home. He knows to call with any problems, questions or concerns. He will follow-up as scheduled in approximately 2 weeks after surgery.
[2024-09-07] MEDS: traMADol HCL 50 MG TABLET PO PRN (10:50)
== END 2024-09-07 11:14 | disposition home health service (06) ==
LOC: 3E 05:17 → ASU 05:17
DX: Z88.6 Allergy status to analgesic agent; Z88.8 Allergy status to other drugs, medicaments and biological substances; Z79.899 Other long term (current) drug therapy; M17.11 Unilateral primary osteoarthritis, right knee